=== PATIENT | male | born 1945 | race Caucasian/White ===

== ENCOUNTER 2018-07-28 15:50 | Observation (INO) ==
[2018-07-28 16:52] LABS: Mean Corpuscular Hemoglobin 32.9 pg (27.0-34.0); Mean Platelet Volume 9.8 fL (7.0-11.0); Platelet Count 139 th/mm3 (150-450); Red Blood Count 3.96 mil/mm3 (4.50-5.90); Red Cell Distribution Width 14.7 % (11.6-17.2); White Blood Count 6.9 th/mm3 (4.0-11.0)
--- NOTE | 2018-07-28 16:57 | CT ---
EXAM DATE: 07/28/2018 4:51 PM EDT AGE/SEX: 72 years / Male INDICATIONS: Syncope. CLINICAL DATA: This is the patient's initial encounter. Patient reports that signs and symptoms have been present for 1 day and indicates a pain score of 0/10. MEDICAL/SURGICAL HISTORY: Diabetes. Hypertension. Gout. None. RADIATION DOSE: 38.83 CTDI (mGy) COMPARISON: No prior exams available for comparison. TECHNIQUE: CT of the head without contrast. Using automated exposure control and adjustment of the mA and/or kV according to patient size, radiation dose was kept as low as reasonably achievable to ob tain optimal diagnostic quality images. DICOM format image data is available electronically for revi ew and comparison. FINDINGS: Cerebrum: The ventricles are normal for age. No evidence of midline shift, mass lesion, acute hemor rhage, or acute large vessel cortically-based infarction. No extraaxial fluid collections are seen. Posterior Fossa: The cerebellum and brainstem are intact. The 4th ventricle is midline. The cerebe llopontine angle is unremarkable. Extracranial: The visualized portion of the orbits is intact. Skull: The calvaria is intact. No evidence of skull fracture. CONCLUSION: 1. No acute intracranial findings. . Electronically signed by: Stephy Gleason MD 07/28/2018 4:56 PM EDT
[2018-07-28 17:00] LABS: Mean Corpuscular HGB Conc 36.1 % (32.0-36.0)
[2018-07-28 17:18] LABS: Alanine Aminotransferase 29 U/L (12-78); Albumin 3.1 g/dL (3.4-5.0); Alkaline Phosphatase 79 U/L (45-117); Anion Gap 11 meq/L (5-15); Aspartate Aminotransferase 21 U/L (15-37); Blood Urea Nitrogen 17 mg/dL (7-18); Calcium 8.2 mg/dL (8.5-10.1); Carbon Dioxide 23.5 meq/L (21.0-32.0); Chloride 102 meq/L (98-107); Glomerular Filtration Rate 67 mL/min (>89); Glucose,Random 226 mg/dL (74-106); Magnesium 1.5 mg/dL (1.5-2.5); Potassium 3.4 meq/L (3.5-5.1); Sodium 136 meq/L (136-145); Total Protein 6.5 g/dL (6.4-8.2)
[2018-07-28] MEDS ORDERED: Magnesium Oxide 400 MG Tablet PO ONE (17:32)
--- NOTE | 2018-07-28 17:47 | ED ---
HPI General Chief Complaint: Syncope Stated Complaint: Evac/Syncope Time Seen by Provider: 07/28/18 16:22 Source: patient and EMS Mode of arrival: EMS Limitations: no limitations History of Present Illness HPI narrative: Patient is a 72-year-old male presenting to the emergency department for evaluation of the syncopal episode. Patient was at home when he started feeling lightheaded and weak in the shower. He got out of the shower, sat on the toilet bowl and passed out against the wall. There is no head injury. states he was not responding for several seconds but aroused spontaneously, states that he was not talking when he first aroused.. Patient states he has been feeling tired and weak for several days. reports that he had a fever over the weekend and was evaluated in the emergency department yesterday. Patient states that he has had a decreased appetite and has not been drinking enough fluids. Patient denies any shortness of breath, headache, abdominal pain, nausea, vomiting. He was supposed to have a colonoscopy with Dr. Browne Thursday but it was canceled because he was sick over the weekend. Patient reports that he had chronic diarrhea, he has not had a bowel movement in a few days. MD complaint: loss of consciousness and felt faint Duration of episode: 5 -: minutes(s) Prodromal symptoms: lightheaded and vertigo Witnessed: yes - by other ( found him passed out against the wall sitting on toilet. No prolonged down time) Context: during exertion Injuries sustained associated with event: none Current symptoms: none Related Data Home Medications Medication Instructions Recorded Confirmed allopurinol 300 mg PO DAILY 07/27/18 07/28/18 aspirin [Aspir-81] 81 mg PO DAILY 07/27/18 07/28/18 atorvastatin 80 mg PO DAILY 07/27/18 07/28/18 carvedilol 25 mg PO BID 07/27/18 07/28/18 glipizide 10 mg PO BID 07/27/18 07/28/18 metformin 1,000 mg PO BID 07/27/18 07/28/18 omeprazole 20 mg PO DAILY 07/27/18 07/28/18 ramipril 10 mg PO BID 07/27/18 07/28/18 sulfasalazine 500 mg PO QID 07/27/18 07/28/18 metformin 500 mg PO QPM 07/28/18 07/28/18 Previous Rx's Medication Instructions Recorded tramadol 50 mg PO Q6H PRN #12 tab 07/27/18 Allergies Allergy/AdvReac Type Severity Reaction Status Date / Time No Known Allergies Allergy Unverified 07/28/18 16:06 Review of Systems ROS: all other systems reviewed are negative [facility] Medical History Medical History Diabetes (Chronic) Gout (Chronic) Hypertension (Chronic) CAD (coronary artery disease) (Chronic) Chronic diarrhea (Chronic) Hyperlipidemia (Chronic) Surgical History Surgical History Hx of cardiac cath (Chronic) Social History Social History Substance History: No History of Abuse Smoking Status: Never smoker How Often Do You Have a Drink Containing Alcohol: Never Recent Travel in [facility] within the Last 8 Weeks: No Recent Out of Country Travel within the Last 8 Weeks: No Immunization History Tetanus Immunization: Unsure Hx Influenza Vaccine This Season: No Exam Narrative Exam Narrative: GENERAL: Well-developed, well-nourished, alert male. Presenting in no acute distress. SKIN: Focused skin assessment warm/dry. HEAD: Atraumatic. Normocephalic. EYES: Pupils equal and round. No scleral icterus. No injection or drainage. ENT: No nasal bleeding or discharge. Mucous membranes pink and moist. NECK: Trachea midline. No JVD. CARDIOVASCULAR: Regular rate and rhythm. No murmur appreciated. RESPIRATORY: No accessory muscle use. Clear to auscultation. Breath sounds equal bilaterally. GASTROINTESTINAL: Abdomen soft, non-tender, nondistended. Hepatic and splenic margins not palpable. MUSCULOSKELETAL: No obvious deformities. No clubbing. No cyanosis. No edema. NEUROLOGICAL: Awake and alert. No obvious cranial nerve deficits. Motor grossly within normal limits. Normal speech. PSYCHIATRIC: Appropriate mood and affect; insight and judgment normal. Course Initial Documented Vital Signs Temperature 98.6 F 07/28/18 16:08 Pulse Rate 74 07/28/18 16:08 Respiratory Rate 17 07/28/18 16:08 Blood Pressure 146/73 H 07/28/18 16:08 Pulse Oximetry 97 07/28/18 16:08 Last Documented Vital Signs Temperature 98.6 F 07/28/18 16:08 Pulse Rate 78 07/28/18 19:24 Respiratory Rate 18 07/28/18 19:24 Blood Pressure 142/73 H 07/28/18 19:24 Pulse Oximetry 97 07/28/18 19:24 Medical Decision Making MDM Narrative Medical decision making narrative: Patient is a 72-year-old male presenting to emerge department for evaluation after having a syncopal episode that was partially witnessed by his . On arrival patient has no focal deficits. He is alert and oriented x3. Labs and imaging ordered and pending. Initial EKG shows sinus rhythm with a right bundle branch block, this was reviewed by my attending physician. CT scan of the brain shows no acute findings. Potassium is 3.4, magnesium is 1.5. Oral replacement ordered for both. CBC resulted with a bandemia. No clear source of infection. Urinalysis is unremarkable, CT scan of the abdomen and pelvis shows no acute findings. Patient is negative for influenza. Lactic acid is pending. Will hold antibiotics at this time, patient is afebrile, his vital signs are stable. Discussed with my attending physician as well as Dr. Newman who accepted admit , admit orders placed. Patient advised in all clinical findings. Patient is resting comfortably, he is well-appearing. He is agreeable to stay. Medical Screen Exam Complete: Yes Emergency Medical Condition: Yes Differential Diagnosis Differential Diagnosis: Vasovagal episode versus metabolic abnormality versus cardiac arrhythmia versus other Medical Records Medical records reviewed: Yes I reviewed the patient's medical records. Chest x-ray from yesterday shows no acute disease. Lab Data Lab results reviewed: Yes I reviewed the patient's lab results. Result diagrams: 07/28/18 16:30 07/28/18 16:30 Lab Results 07/28/18 07/28/18 07/28/18 Range/Units 16:30 16:30 16:38 WBC 6.9 (4.0-11.0) th/mm3 RBC 3.96 L (4.50-5.90) mil/mm3 Hgb 13.0 (13.0-17.0) gm/dL Hct 36.0 L (39.0-51.0) % MCV 91.0 (80.0-100.0) fL MCH 32.9 (27.0-34.0) pg MCHC 36.1 H (32.0-36.0) % RDW 14.7 (11.6-17.2) % Plt Count 139 L (150-450) th/mm3 MPV 9.8 (7.0-11.0) fL Prelim Diff (Auto) Manual diff required WBC Differential Manual diff final Seg Neuts % (Manual) 60 (16-70) % Band Neuts % (Manual) 10 H (0-6) % Lymphocytes % (Manual) 11 (9-44) % Monocytes % (Manual) 10 H (0-8) % Eosinophils % (Manual) 7 H (0-4) % Blast Cells % (Manual) 2 H (0-0) % Abs Neuts (Manual) 4.8 (1.8-7.7) th/mm3 Differential Comment . Platelet Estimate Low L (Normal) Platelet Morphology Normal (Normal) Sodium 136 (136-145) meq/L Potassium 3.4 L D (3.5-5.1) meq/L Chloride 102 (98-107) meq/L Carbon Dioxide 23.5 (21.0-32.0) meq/L Anion Gap 11 (5-15) meq/L BUN 17 (7-18) mg/dL Creatinine 1.08 (0.60-1.30) mg/dL Estimated GFR 67 L (>89) mL/min POC Glucose 241 H (68-110) mg/dl Random Glucose 226 H D (74-106) mg/dL Calcium 8.2 L (8.5-10.1) mg/dL Magnesium 1.5 (1.5-2.5) mg/dL Total Bilirubin 1.3 H (0.2-1.0) mg/dL AST 21 (15-37) U/L ALT 29 (12-78) U/L Alkaline Phosphatase 79 (45-117) U/L Troponin I Less than 0.02 L (0.02-0.05) ng/mL Total Protein 6.5 D (6.4-8.2) g/dL Albumin 3.1 L (3.4-5.0) g/dL Urine Color (Yellw/Straw) Urine Clarity (Clear) Urine pH (5.0-8.5) Ur Specific [place] (1.002-1.035) Urine Protein (Neg-Trace) mg/dL Urine Glucose (UA) (Negative) mg/dL Urine Ketones (Negative) mg/dL Urine Occult Blood (Negative) Urine Nitrate (Negative) Urine Bilirubin (Negative) Urine Urobilinogen (Less than 2) mg/dL Ur Leukocyte Esterase (Negative) Urine RBC (0-3) /hpf Urine WBC (0-5) /hpf Hyaline Casts (0-3) /lpf Urine Mucus (Occasional) /lpf Micro UA Comment Ur Microscopic Review Urine Culture Comments 07/28/18 Range/Units 18:50 WBC (4.0-11.0) th/mm3 RBC (4.50-5.90) mil/mm3 Hgb (13.0-17.0) gm/dL Hct (39.0-51.0) % MCV (80.0-100.0) fL MCH (27.0-34.0) pg MCHC (32.0-36.0) % RDW (11.6-17.2) % Plt Count (150-450) th/mm3 MPV (7.0-11.0) fL Prelim Diff (Auto) WBC Differential Seg Neuts % (Manual) (16-70) % Band Neuts % (Manual) (0-6) % Lymphocytes % (Manual) (9-44) % Monocytes % (Manual) (0-8) % Eosinophils % (Manual) (0-4) % Blast Cells % (Manual) (0-0) % Abs Neuts (Manual) (1.8-7.7) th/mm3 Differential Comment Platelet Estimate (Normal) Platelet Morphology (Normal) Sodium (136-145) meq/L Potassium (3.5-5.1) meq/L Chloride (98-107) meq/L Carbon Dioxide (21.0-32.0) meq/L Anion Gap (5-15) meq/L BUN (7-18) mg/dL Creatinine (0.60-1.30) mg/dL Estimated GFR (>89) mL/min POC Glucose (68-110) mg/dl Random Glucose (74-106) mg/dL Calcium (8.5-10.1) mg/dL Magnesium (1.5-2.5) mg/dL Total Bilirubin (0.2-1.0) mg/dL AST (15-37) U/L ALT (12-78) U/L Alkaline Phosphatase (45-117) U/L Troponin I (0.02-0.05) ng/mL Total Protein (6.4-8.2) g/dL Albumin (3.4-5.0) g/dL Urine Color [place] (Yellw/Straw) Urine Clarity Hazy H (Clear) Urine pH 5.0 (5.0-8.5) Ur Specific [place] 1.027 (1.002-1.035) Urine Protein 30 H (Neg-Trace) mg/dL Urine Glucose (UA) 500 or greater (Negative) mg/dL Urine Ketones Negative (Negative) mg/dL Urine Occult Blood Small H (Negative) Urine Nitrate Negative (Negative) Urine Bilirubin Negative (Negative) Urine Urobilinogen 2.0 H (Less than 2) mg/dL Ur Leukocyte Esterase Negative (Negative) Urine RBC Less than 1 (0-3) /hpf Urine WBC 1 (0-5) /hpf Hyaline Casts 5 (0-3) /lpf Urine Mucus Few H (Occasional) /lpf Micro UA Comment Culture not ind Ur Microscopic Review Not Reportable Urine Culture Comments Culture not ind Imaging Data Radiologist's impression: Head CT 07/28/18 16:24 CONCLUSION: 1. No acute intracranial findings. . Abdomen/Pelvis CT 07/28/18 18:19 CONCLUSION: 1. No acute inflammatory process. 2. Subcentimeter left renal low-density likely benign cysts. 3. Enlarged prostate gland. Discharge Plan Discharge Disposition Patient Disposition: 30 Still Patient Discharge Condition Condition: Stable Discharge Details Diagnosis: Bandemia without diagnosis of specific infection, Syncope and collapse Physicians Team ED Provider: Lizz Danielle ED Midlevel Provider: Rula Yen Primary Care Provider: Margarita Ram Rxs /Orders / Referrals /Forms Prescriptions: No Action metformin 500 mg Tablet 500 mg PO QPM RF: 0 atorvastatin 80 mg Tablet 80 mg PO DAILY RF: 0 carvedilol 25 mg Tablet 25 mg PO BID RF: 0 glipizide 10 mg Tablet 10 mg PO BID RF: 0 sulfasalazine 500 mg Tablet,Delayed Release (Dr/Ec) 500 mg PO QID RF: 0 metformin 1,000 mg Tablet 1,000 mg PO BID RF: 0 omeprazole 20 mg Capsule,Delayed Release(Dr/Ec) 20 mg PO DAILY RF: 0 allopurinol 300 mg Tablet 300 mg PO DAILY RF: 0 ramipril 10 mg Capsule 10 mg PO BID RF: 0 aspirin [Aspir-81] 81 mg Tablet,Delayed Release (Dr/Ec) 81 mg PO DAILY RF: 0 tramadol 50 mg tablet 50 mg PO Q6H PRN (Reason: pain) Qty: 12 RF: 0 Discharge Interventions Interventions: Vital Signs Last Done: 07/28/18 19:24 Status ED Status: Pending Admission
[2018-07-28 18:14] LABS: Eosinophils 7 % (0-4); Monocytes 10 % (0-8)
[2018-07-28 18:17] LABS: Platelet Morphology Normal (Normal)
--- NOTE | 2018-07-28 19:04 | CT ---
EXAM DATE: 07/28/2018 6:58 PM EDT AGE/SEX: 72 years / Male INDICATIONS: Abdomen pain. CLINICAL DATA: This is the patient's initial encounter. Patient reports that signs and symptoms have been present for 1 day and indicates a pain score of 5/10. MEDICAL/SURGICAL HISTORY: Diabetes. Cardiovascular disease. Hypertension. None. ORAL CONTRAST: No oral contrast ingested. RADIATION DOSE: 9.49 CTDI (mGy) COMPARISON: No prior exams available for comparison. TECHNIQUE: Multiple contiguous axial images were obtained through the abdomen and pelvis following b olus infusion of 75 ml Omnipaque 350 (iohexol) nonionic water-soluble contrast as a single exam dos e. No oral contrast ingested. Using automated exposure control and adjustment of the mA and/or kV ac cording to patient size, radiation dose was kept as low as reasonably achievable to obtain optimal di agnostic quality images. DICOM format image data is available electronically for review and comparis on. FINDINGS: Lower Lungs: The visualized lower lungs are clear. Liver: The liver has a homogeneous density without space-occupying lesion. There is no dilation of th e biliary tree. Spleen: Homogeneous density without enlargement. Pancreas: Unremarkable without mass or calcification. Kidneys: Normal in size and shape. No evidence of mass or hydronephrosis. Subcentimeter left renal l ow-density. Adrenal Glands: Unremarkable. Aorta: Atherosclerotic changes without aneurysmal dilation. Bowel/Mesentery: The bowel loops are grossly unremarkable. The cecum and sigmoid colon have a normal configuration. Abdominal Wall: Intact. Retroperitoneum: No evidence of adenopathy in the retrocrural, para-aortic, or deep pelvic regions. Bladder: Contours are smooth. Reproductive Organs: No abnormal masses or calcifications seen. Enlarged prostate gland. Inguinal: The inguinal region is unremarkable without evidence of adenopathy. Bony Structures: Unremarkable. CONCLUSION: 1. No acute inflammatory process. 2. Subcentimeter left renal low-density likely benign cysts. 3. Enlarged prostate gland. Electronically signed by: Chris Alba MD 07/28/2018 7:02 PM EDT
[2018-07-28 19:43] LABS: Bilirubin,Urine Negative (Negative); Clarity,Urine Hazy (Clear); Color,Urine Amber (Yellw/Straw); Glucose,Urine (UA) 500 or Greater mg/dL (Negative); Hyaline Casts,Urine 5 /lpf (0-3); Leukocyte Esterase,Urine Negative (Negative); Mucus,Urine Few /lpf (Occasional); Nitrite,Urine Negative (Negative); Specific Gravity,Urine 1.027 (1.002-1.035)
[2018-07-28] MEDS ORDERED: Vancomycin Inj 1,000 MG in Sodium Chlor 0.9% Inj 250 ML IV.SIG STA (21:23)
[2018-07-28] MEDS ORDERED: Piperacil/Tazo 4.5 GM Premix 4.5 GM/100 ML BAG IV.SIG STA (21:23)
[2018-07-28] MEDS: Sod Chloride 0.9% Inj 1,000 ML IV.SIG SCH ×2 (21:27→23:30)
--- NOTE | 2018-07-28 22:03 | XR ---
EXAM DATE: 07/28/2018 10:00 PM EDT AGE/SEX: 72 years / Male INDICATIONS: Sepsis, syncope, bandemia. Patient states " I have passed out 2 days in a row. I believ e I am just dehydrated." CLINICAL DATA: This is the patient's initial encounter. Patient reports that signs and symptoms have been present for 2 days and indicates a pain score of 0/10. MEDICAL/SURGICAL HISTORY: None. None. COMPARISON: [facility] [place], CHEST 1V SINGLE AP, 07/27/2018. . FINDINGS: A single AP view of the chest demonstrates the lungs to be symmetrically aerated without evidence of mass, infiltrate or effusion. The cardiomediastinal contours are unremarkable. Osseous structures a re intact. CONCLUSION: No acute cardiopulmonary disease Electronically signed by: Chris Alba MD 07/28/2018 10:02 PM EDT
[2018-07-28] MEDS ORDERED: Vancomycin Consult Pharmacy OTHER PRN (22:06)
[2018-07-28] MEDS ORDERED: Dextrose 50% in Water 50 ML Vial IV.PUSH PRN (22:08)
--- NOTE | 2018-07-28 22:20 | P.HP ---
History of Present Illness Service: [facility] Primary Care Physician: Margarita Ram MD History of Present Illness: 72-year-old male with past medical history significant for hypertension, diabetes mellitus, hyperlipidemia and coronary artery disease presents to the emergency department for the evaluation of a syncopal episode. The patient reports that he started feeling dizzy on Thursday. He reports that he was not feeling well through the weekend and on Thursday had a fever of 102. The patient came to the emergency department yesterday was given IV fluid hydration and reports resolution of his symptoms. He was discharged home. He reports that he woke up this morning feeling weak. He had a syncopal event after getting out of the shower. He is not sure if he lost consciousness. He denies any head trauma or injuries of other kind. He denies chest pain or shortness of breath. No abdominal pain. No nausea/vomiting/diarrhea. No lateralizing signs /symptoms Review of Systems All other systems reviewed negative except as stated in [facility] - History History Provided By: Patient - Medical History Medical History: Medical History (Last Updated 07/28/18 @ 22:12 by Gisell Newman MD) Diabetes (Chronic) Gout (Chronic) Hypertension (Chronic) Hyperlipidemia CAD (coronary artery disease) Chronic diarrhea Hyperlipidemia - Surgical History Surgical History: Surgical History (Last Updated 07/28/18 @ 22:13 by Gisell Newman MD) Hx of cardiac cath (Chronic) History of knee surgery - Family History Family History: Family History (Last Updated 07/28/18 @ 22:13 by Gisell Newman MD) Other Coronary artery disease Diabetes mellitus - Tobacco History Smoking Status: Never smoker - Alcohol History How Often Do You Have a Drink Containing Alcohol: Never - Substance Use History Substance History: No History of Abuse - Travel History Recent Travel in the [place] Within the Last 8 Weeks: No Recent Travel Out of the Country Within the Last 8 Weeks: No - Immunization History Tetanus Immunization: Unsure Hx Influenza Vaccine This Season: No Medications and Allergies Active Medications: Active Medications Aspirin (Ecotrin) 81 mg PO DAILY LEONCIO Atorvastatin Calcium (Lipitor) 80 mg PO DAILY LEONCIO Dextrose (D50w Vial) 50 ml IV.PUSH UNSCH PRN PRN Reason: PER HYPOGLYCEMIA PROTOCOL Sodium Chloride (Ns Inj) 1,000 mls @ 0 mls/hr IV.SIG BOLUS LEONCIO Last Admin: 07/28/18 21:27 Dose: 1,000 mls/hr Vancomycin HCl 1,000 mg/ (Sodium Chloride) 250 mls @ 250 mls/hr IV.SIG STAT STA Stop: 07/28/18 22:22 Allergies Allergy/AdvReac Type Severity Reaction Status Date / Time No Known Allergies Allergy Unverified 07/28/18 16:06 Home Medications Medication Instructions Recorded Confirmed Type allopurinol 300 mg PO DAILY 07/27/18 07/28/18 History aspirin [Aspir-81] 81 mg PO DAILY 07/27/18 07/28/18 History atorvastatin 80 mg PO DAILY 07/27/18 07/28/18 History carvedilol 25 mg PO BID 07/27/18 07/28/18 History glipizide 10 mg PO BID 07/27/18 07/28/18 History metformin 1,000 mg PO BID 07/27/18 07/28/18 History omeprazole 20 mg PO DAILY 07/27/18 07/28/18 History ramipril 10 mg PO BID 07/27/18 07/28/18 History sulfasalazine 500 mg PO QID 07/27/18 07/28/18 History metformin 500 mg PO QPM 07/28/18 07/28/18 History Exam Vital signs: Vital Signs 07/28/18 16:08 07/28/18 16:14 07/28/18 16:45 Temperature 98.6 F Pulse Rate 74 75 Respiratory Rate 17 Blood Pressure 146/73 H Pulse Oximetry 97 97 07/28/18 19:24 Temperature Pulse Rate 78 Respiratory Rate 18 Blood Pressure 142/73 H Pulse Oximetry 97 Intake & Output 07/28/18 07/28/18 07/29/18 06:59 18:59 06:59 Weight 87.543 kg Narrative: Gen.: No acute distress Head: Normocephalic. Atraumatic. EENT: Pupils equal round and reactive to light. Nose without drainage. Airway intact. Throat without injection. Cardiovascular: Regular rate and rhythm. No murmurs, rubs or gallops. Respiratory: Lungs clear to auscultation bilaterally. No wheezes or rhonchi. Abdomen: Soft, nontender, nondistended. No peritoneal signs. Musculoskeletal: No gross deformities. No edema. Skin: No obvious rashes or erythema. Neuro: Sensory and motor grossly intact. Cranial nerves II through XII grossly intact. Results - Labs CBC & Chem 7: 07/28/18 16:30 07/28/18 16:30 Labs: Laboratory Results - last 24 hr 07/28/18 07/28/18 07/28/18 16:30 16:30 16:38 WBC 6.9 RBC 3.96 L Hgb 13.0 Hct 36.0 L MCV 91.0 MCH 32.9 MCHC 36.1 H RDW 14.7 Plt Count 139 L MPV 9.8 Prelim Diff (Auto) Manual diff required WBC Differential Manual diff final Seg Neuts % (Manual) 60 Band Neuts % (Manual) 10 H Lymphocytes % (Manual) 11 Monocytes % (Manual) 10 H Eosinophils % (Manual) 7 H Blast Cells % (Manual) 2 H Abs Neuts (Manual) 4.8 Differential Comment . Platelet Estimate Low L Platelet Morphology Normal Sodium 136 Potassium 3.4 L D Chloride 102 Carbon Dioxide 23.5 Anion Gap 11 BUN 17 Creatinine 1.08 Estimated GFR 67 L POC Glucose 241 H Random Glucose 226 H D Lactic Acid Calcium 8.2 L Magnesium 1.5 Total Bilirubin 1.3 H AST 21 ALT 29 Alkaline Phosphatase 79 Troponin I Less than 0.02 L Total Protein 6.5 D Albumin 3.1 L Urine Color Urine Clarity Urine pH Ur Specific [place] Urine Protein Urine Glucose (UA) Urine Ketones Urine Occult Blood Urine Nitrate Urine Bilirubin Urine Urobilinogen Ur Leukocyte Esterase Urine RBC Urine WBC Hyaline Casts Urine Mucus Micro UA Comment Ur Microscopic Review Urine Culture Comments 07/28/18 07/28/18 18:50 20:05 WBC RBC Hgb Hct MCV MCH MCHC RDW Plt Count MPV Prelim Diff (Auto) WBC Differential Seg Neuts % (Manual) Band Neuts % (Manual) Lymphocytes % (Manual) Monocytes % (Manual) Eosinophils % (Manual) Blast Cells % (Manual) Abs Neuts (Manual) Differential Comment Platelet Estimate Platelet Morphology Sodium Potassium Chloride Carbon Dioxide Anion Gap BUN Creatinine Estimated GFR POC Glucose Random Glucose Lactic Acid 2.8 H Calcium Magnesium Total Bilirubin AST ALT Alkaline Phosphatase Troponin I Total Protein Albumin Urine Color [place] Urine Clarity Hazy H Urine pH 5.0 Ur Specific [place] 1.027 Urine Protein 30 H Urine Glucose (UA) 500 or greater Urine Ketones Negative Urine Occult Blood Small H Urine Nitrate Negative Urine Bilirubin Negative Urine Urobilinogen 2.0 H Ur Leukocyte Esterase Negative Urine RBC Less than 1 Urine WBC 1 Hyaline Casts 5 Urine Mucus Few H Micro UA Comment Culture not ind Ur Microscopic Review Not Reportable Urine Culture Comments Culture not ind - Imaging Impressions Head CT 07/28/18 16:24 CONCLUSION: 1. No acute intracranial findings. . Abdomen/Pelvis CT 07/28/18 18:19 CONCLUSION: 1. No acute inflammatory process. 2. Subcentimeter left renal low-density likely benign cysts. 3. Enlarged prostate gland. Chest X-Ray 07/28/18 21:38 CONCLUSION: No acute cardiopulmonary disease Caprini VTE Risk Assessment Caprini VTE Risk Assessment: Moderate/High Risk (score >= 2) Caprini Risk Assessment Model: Point Value = 1 Point Value = 2 Point Value = 3 Point Value = 5 Age 41-60 Minor surgery BMI > 25 kg/m2 Swollen legs Varicose veins or History of unexplained or recurrent spontaneous Oral contraceptives or hormone replacement Sepsis (< 1 month) Serious lung disease, including pneumonia (< 1 month) Abnormal pulmonary function Acute myocardial infarction Congestive heart failure (< 1 month) History of inflammatory bowel disease Medical patient at bed rest Age 61-74 Arthroscopic surgery Major open surgery (> 45 min) Laparoscopic surgery (> 45 min) Malignancy Confined to bed (> 72 hours) Immobilizing plaster cast Central venous access Age >= 75 History of VTE Family history of VTE Factor V Leiden Prothrombin [id number] Lupus anticoagulant Anticardiolipin antibodies Elevated serum homocysteine Heparin-induced thrombocytopenia Other congenital or acquired thrombophilia Stroke (< 1 month) Elective arthroplasty Hip, pelvis, or leg fracture Acute spinal cord injury (< 1 month) Prophylaxis Regimen: Total Risk Factor Score Risk Level Prophylaxis Regimen 0-1 Low Early ambulation 2 Moderate Order ONE of the following: *Sequential Compression Device (SCD) *Heparin 5000 units SQ BID 3-4 Higher Order ONE of the following medications: *Heparin 5000 units SQ TID *Enoxaparin/Lovenox 40 mg SQ daily (WT < 150 kg, CrCl > 30 mL/min) *Enoxaparin/Lovenox 30 mg SQ daily (WT < 150 kg, CrCl > 10-29 mL/min) *Enoxaparin/Lovenox 30 mg SQ BID (WT < 150 kg, CrCl > 30 mL/min) AND/OR *Sequential Compression Device (SCD) 5 or more Highest Order ONE of the following medications: *Heparin 5000 units SQ TID (Preferred with Epidurals) *Enoxaparin/Lovenox 40 mg SQ daily (WT < 150 kg, CrCl > 30 mL/min) *Enoxaparin/Lovenox 30 mg SQ daily (WT < 150 kg, CrCl > 10-29 mL/min) *Enoxaparin/Lovenox 30 mg SQ BID (WT < 150 kg, CrCl > 30 mL/min) AND *Sequential Compression Device (SCD) Assessment and Plan - Plan Assessment/plan: 1. Syncope Carotid ultrasound/echo pending May be secondary to underlying illness versus dehydration 2. Elevated lactic acid/bandemia Urine negative Chest x-ray negative for acute process, personally reviewed Patient with bandemia and elevated lactic acid Vancomycin/Zosyn Blood cultures pending 3. Diabetes mellitus Holding home oral anti-hyperglycemics Sliding-scale insulin Monitor blood glucose 4. Hypertension/hyperlipidemia/coronary artery disease Continue home medications FEN Diabetic diet Electrolytes: Status post repletion with p.o. potassium, monitor BMP NS at 100 cc/hour Heparin
[2018-07-28] MEDS ORDERED: Vancomycin Inj 1,000 MG in Sodium Chlor 0.9% Inj 250 ML IV.SIG ONE (23:00)
[2018-07-28] MEDS: Sod Chloride 0.9% Inj 1,000 ML IV.CONT SCH (23:32)
[2018-07-29] MEDS: Insulin NovoLOG Aspart Correctional Sugar Inj SQ SCH ×5 (03:59→20:56)
[2018-07-29] MEDS ORDERED: Piperacil/Tazo 3.375 GM Premix 50 ML IV.SIG SCH (04:00)
[2018-07-29] MEDS: Heparin - SQ 10,000 UNITS/ML Vial SQ SCH ×3 (06:26→20:57)
[2018-07-29 07:36] LABS: Calcium 8.5 mg/dL (8.5-10.1); Carbon Dioxide 23.8 meq/L (21.0-32.0); Potassium 4.4 meq/L (3.5-5.1)
[2018-07-29 07:40] LABS: Hematocrit 32.2 % (39.0-51.0); Hemoglobin 11.7 gm/dL (13.0-17.0); Mean Corpuscular Volume 90.6 fL (80.0-100.0); Mean Platelet Volume 9.3 fL (7.0-11.0); Platelet Count 118 th/mm3 (150-450); Red Blood Count 3.56 mil/mm3 (4.50-5.90); Red Cell Distribution Width 14.7 % (11.6-17.2); White Blood Count 5.4 th/mm3 (4.0-11.0)
[2018-07-29 07:55] LABS: Mean Corpuscular HGB Conc 36.4 % (32.0-36.0)
[2018-07-29 09:00] LABS: Eosinophils 5 % (0-4); Lymphocytes 28 % (9-44); Monocytes 12 % (0-8); Platelet Morphology Normal (Normal)
--- NOTE | 2018-07-29 09:29 | US ---
EXAM DATE: 07/29/2018 9:23 AM EDT AGE/SEX: 72 years / Male INDICATIONS: Syncope. CLINICAL DATA: This is the patient's initial encounter. Patient reports that signs and symptoms have been present for 1 day and indicates a pain score of 0/10. MEDICAL/SURGICAL HISTORY: Hypertension. Coronary artery disease. Diabetes. GOUT. Hyperlipidemia . . Knee surgery. Cardiac catheterization. COMPARISON: No prior exams available for comparison. VELOCITY PARAMETERS: ICA/CCA Ratio: Right 1.4 , Left 1.2 ICA: Right 124 cm/sec, Left 118 cm/sec CCA: Right 90 cm/sec, Left 96 cm/sec ECA: Right 115 cm/sec, Left 79 cm/sec Vertebral: Right 58 cm/sec antegrade, Left 79 cm/sec antegrade FINDINGS: Right Carotid: Mild arteriosclerotic plaque is visualized.The waveforms are within normal limits. Left Carotid: Mild arteriosclerotic plaque is visualized. The waveforms are within normal limits. Other: None. CONCLUSION: 1. Right Internal Carotid Artery: No hemodynamically significant stenosis. 2. Left Internal Carotid Artery: No hemodynamically significant stenosis. Electronically signed by: Elias Cheney MD 07/29/2018 9:28 AM EDT
--- NOTE | 2018-07-29 09:39 | P.PNIM ---
Subjective Interval history: Patient reports he is feeling much better today. He denies lightheadedness. No chest pain. Physical Exam Vital signs: Vital Signs 07/28/18 16:08 07/28/18 16:14 07/28/18 16:45 Temperature 98.6 F Pulse Rate 74 75 Respiratory Rate 17 Blood Pressure 146/73 H Pulse Oximetry 97 97 07/28/18 19:24 07/28/18 23:56 07/29/18 00:00 Temperature 98.2 F Pulse Rate 78 76 80 Respiratory Rate 18 20 Blood Pressure 142/73 H 149/71 H Pulse Oximetry 97 100 07/29/18 03:30 07/29/18 04:00 07/29/18 07:37 Temperature 98.4 F 98.0 F Pulse Rate 97 H 76 72 Respiratory Rate 19 12 Blood Pressure 145/71 H 148/71 H Pulse Oximetry 97 96 Intake & Output 07/28/18 07/29/18 07/29/18 18:59 06:59 18:59 Intake Total 1650 / 1650 Balance 1650 / 1650 Weight 87.543 kg Intake: IV 1650 / 1650 Zosyn 3.375 GM Premix 50 ML @ 50 / 50 100 mls/hr IV.SIG Q6H LEONCIO Rx#: [id number] Zosyn 4.5 GM Premix 4.5 gm In 100 / 100 100 ml @ 200 mls/hr IV.SIG STAT STA Rx#:[id number] NS Inj 1,000 ML @ Wide Open IV. 1000 / 1000 SIG BOLUS LEONCIO Rx#:[id number] Vancomycin Inj 1,000 MG In NS 500 / 500 Inj 250 ML @ 250 mls/hr IV.SIG ONCE ONE Rx#:[id number] Other: # Voids 2 Date of Last Bowel Movement 07/24/18 Narrative: GENERAL: This is a well-nourished, well-developed patient, in no apparent distress. CARDIOVASCULAR: Normal rate and regular rhythm without murmurs, gallops, or rubs. RESPIRATORY: Good respiratory efforts. Breath sounds equal and clear to auscultation bilaterally. GASTROINTESTINAL: Abdomen soft, non-tender, non-distended. Normal active bowel sounds MUSCULOSKELETAL: Extremities without cyanosis, or edema. NEURO: Alert & Oriented x4 to person, place, time, situation. Moves all ext x4 PSYCH: Appropriate mood and affect. Results - Labs CBC & Chem 7: 09/20/18 06:05 07/29/18 06:05 Laboratory Results - last 24 hr 07/28/18 07/28/18 07/28/18 16:30 16:30 16:30 WBC 6.9 RBC 3.96 L Hgb 13.0 Hct 36.0 L MCV 91.0 MCH 32.9 MCHC 36.1 H RDW 14.7 Plt Count 139 L MPV 9.8 Prelim Diff (Auto) Stem Processing Machine Operator WBC Differential Manual diff final . Seg Neuts % (Manual) 60 Band Neuts % (Manual) 10 H Lymphocytes % (Manual) 11 Monocytes % (Manual) 10 H Eosinophils % (Manual) 7 H Blast Cells % (Manual) 2 H Abs Neuts (Manual) 4.8 Differential Comment . Platelet Estimate Low L Platelet Morphology Normal Sodium 136 Potassium 3.4 L D Chloride 102 Carbon Dioxide 23.5 Anion Gap 11 BUN 17 Creatinine 1.08 Estimated GFR 67 L POC Glucose Random Glucose 226 H D Lactic Acid Calcium 8.2 L Magnesium 1.5 Total Bilirubin 1.3 H AST 21 ALT 29 Alkaline Phosphatase 79 Troponin I Less than 0.02 L Total Protein 6.5 D Albumin 3.1 L Urine Color Urine Clarity Urine pH Ur Specific [place] Urine Protein Urine Glucose (UA) Urine Ketones Urine Occult Blood Urine Nitrate Urine Bilirubin Urine Urobilinogen Ur Leukocyte Esterase Urine RBC Urine WBC Hyaline Casts Urine Mucus Micro UA Comment Ur Microscopic Review Urine Culture Comments 07/28/18 07/28/18 07/28/18 16:38 18:50 20:05 WBC RBC Hgb Hct MCV MCH MCHC RDW Plt Count MPV Prelim Diff (Auto) WBC Differential Seg Neuts % (Manual) Band Neuts % (Manual) Lymphocytes % (Manual) Monocytes % (Manual) Eosinophils % (Manual) Blast Cells % (Manual) Abs Neuts (Manual) Differential Comment Platelet Estimate Platelet Morphology Sodium Potassium Chloride Carbon Dioxide Anion Gap BUN Creatinine Estimated GFR POC Glucose 241 H Random Glucose Lactic Acid 2.8 H Calcium Magnesium Total Bilirubin AST ALT Alkaline Phosphatase Troponin I Total Protein Albumin Urine Color [place] Urine Clarity Hazy H Urine pH 5.0 Ur Specific [place] 1.027 Urine Protein 30 H Urine Glucose (UA) 500 or greater Urine Ketones Negative Urine Occult Blood Small H Urine Nitrate Negative Urine Bilirubin Negative Urine Urobilinogen 2.0 H Ur Leukocyte Esterase Negative Urine RBC Less than 1 Urine WBC 1 Hyaline Casts 5 Urine Mucus Few H Micro UA Comment Culture not ind Ur Microscopic Review Not Reportable Urine Culture Comments Culture not ind 07/28/18 07/29/18 07/29/18 22:25 02:00 03:52 WBC RBC Hgb Hct MCV MCH MCHC RDW Plt Count MPV Prelim Diff (Auto) WBC Differential Seg Neuts % (Manual) Band Neuts % (Manual) Lymphocytes % (Manual) Monocytes % (Manual) Eosinophils % (Manual) Blast Cells % (Manual) Abs Neuts (Manual) Differential Comment Platelet Estimate Platelet Morphology Sodium Potassium Chloride Carbon Dioxide Anion Gap BUN Creatinine Estimated GFR POC Glucose 174 H Random Glucose Lactic Acid 2.5 H 2.0 Calcium Magnesium Total Bilirubin AST ALT Alkaline Phosphatase Troponin I Total Protein Albumin Urine Color Urine Clarity Urine pH Ur Specific [place] Urine Protein Urine Glucose (UA) Urine Ketones Urine Occult Blood Urine Nitrate Urine Bilirubin Urine Urobilinogen Ur Leukocyte Esterase Urine RBC Urine WBC Hyaline Casts Urine Mucus Micro UA Comment Ur Microscopic Review Urine Culture Comments 07/29/18 07/29/18 06:05 06:05 WBC 5.4 RBC 3.56 L Hgb 11.7 L Hct 32.2 L MCV 90.6 MCH 33.0 MCHC 36.4 H RDW 14.7 Plt Count 118 L MPV 9.3 Prelim Diff (Auto) Manual diff required WBC Differential Manual diff final Seg Neuts % (Manual) 50 Band Neuts % (Manual) 5 Lymphocytes % (Manual) 28 Monocytes % (Manual) 12 H Eosinophils % (Manual) 5 H Blast Cells % (Manual) Abs Neuts (Manual) 3.0 Differential Comment . Platelet Estimate Low L Platelet Morphology Normal Sodium 137 Potassium 4.4 D Chloride 104 Carbon Dioxide 23.8 Anion Gap 9 BUN 15 Creatinine 0.93 Estimated GFR 80 L POC Glucose Random Glucose 167 H Lactic Acid Calcium 8.5 Magnesium Total Bilirubin AST ALT Alkaline Phosphatase Troponin I Total Protein Albumin Urine Color Urine Clarity Urine pH Ur Specific [place] Urine Protein Urine Glucose (UA) Urine Ketones Urine Occult Blood Urine Nitrate Urine Bilirubin Urine Urobilinogen Ur Leukocyte Esterase Urine RBC Urine WBC Hyaline Casts Urine Mucus Micro UA Comment Ur Microscopic Review Urine Culture Comments Microbiology 07/28/18 19:05 Nasal Wash Influenza Types A,B Antigen - Final Negative for FLU A and B antigen Infection due to influenza A or B cannot be ruled out since the antigen present in the sample may be below the detection limit of the test. - Imaging Impressions Head CT 07/28/18 16:24 CONCLUSION: 1. No acute intracranial findings. . Abdomen/Pelvis CT 07/28/18 18:19 CONCLUSION: 1. No acute inflammatory process. 2. Subcentimeter left renal low-density likely benign cysts. 3. Enlarged prostate gland. Chest X-Ray 07/28/18 21:38 CONCLUSION: No acute cardiopulmonary disease Carotid Doppler Study 07/29/18 00:00 CONCLUSION: 1. Right Internal Carotid Artery: No hemodynamically significant stenosis. 2. Left Internal Carotid Artery: No hemodynamically significant stenosis. Assessment and Plan - Plan 72-year-old male with: 1. Syncope Carotid ultrasound negative. echo pending Could be secondary to dehydration versus vasovagal event. Much improved since arriving at the hospital and received IV fluid. Obtain orthostatic vital signs. PT to evaluate 2. Elevated lactic acid/bandemia Urine negative Chest x-ray negative for acute process, personally reviewed Patient with bandemia and elevated lactic acid on presentation that quickly resolved. Discontinue antibiotics for now and monitor off of antibiotics. 3. Diabetes mellitus Holding home oral anti-hyperglycemics Sliding-scale insulin Monitor blood glucose 4. Hypertension/hyperlipidemia/coronary artery disease Continue home medications FEN Diabetic diet Electrolytes: Status post repletion with p.o. potassium, monitor BMP NS at 100 cc/hour Heparin
[2018-07-29] MEDS: Carvedilol 12.5 MG Tablet PO SCH ×2 (10:20→20:58)
[2018-07-29] MEDS: sulfaSALAzine EC 500 MG Tablet PO SCH ×4 (10:20→20:58)
[2018-07-29] MEDS: Pantoprazole Sodium 20 MG DR Tablet PO SCH (10:20)
[2018-07-29] MEDS: Ramipril 5 MG Capsule PO SCH ×2 (10:20→20:57)
[2018-07-29] MEDS: Sod Chloride 0.9% Inj 1,000 ML IV.CONT SCH ×2 (11:24→17:47)
[2018-07-29] MEDS ORDERED: Vancomycin Inj 1,500 MG in Sodium Chlor 0.9% Inj 500 ML IV.SIG SCH (14:00)
--- NOTE | 2018-07-29 14:42 | ECHRPT ---
Indication: CVA/TIA CONCLUSIONS Mildly dilated left ventricle. Mild concentric left ventricular hypertrophy. The left ventricular systolic function is mildly to moderately reduced with an estimated ejection fr action in the range of 40-45%. Trace mitral valve regurgitation. Aortic valve sclerosis is present. There is trace tricuspid valve regurgitation. BP: / HR: Rhythm: Sinus MEASUREMENTS (Male / Female) Normal Values Technical Quality:Fair 2D ECHO LV Diastolic Diameter PLAX 6.4 cm 4.2 - 5.9 / 3.9 - 5.3 cm LV Systolic Diameter PLAX 5.4 cm IVS Diastolic Thickness 1.3 cm 0.6 - 1.0 / 0.6 - 0.9 cm LVPW Diastolic Thickness 1.3 cm 0.6 - 1.0 / 0.6 - 0.9 cm LV Relative Wall Thickness 0.4 LVOT Diameter 2.3 cm Aortic Root Diameter 3.9 cm LA Systolic Diameter LX 3.6 cm 3.0 - 4.0 / 2.7 - 3.8 cm DOPPLER AV Peak Velocity 102.0 cm/s AV Peak Gradient 4.2 mmHg AV Mean Gradient 2.0 mmHg AV Velocity Time Integral 20.3 cm LVOT Peak Velocity 77.5 cm/s LVOT Peak Gradient 2.4 mmHg LVOT Velocity Time Integral 16.6 cm AV Area Cont Eq vti 3.4 cm AV Area Cont Eq pk 3.2 cm Mitral E Point Velocity 68.6 cm/s Mitral A Point Velocity 103.0 cm/s Mitral E to A Ratio 0.7 LV E' Lateral Velocity 5.3 cm/s Mitral E to LV E' Lateral Ratio 13.0 LV E' Septal Velocity 6.3 cm/s Mitral E to LV E' Septal Ratio 10.8 PV Peak Velocity 82.0 cm/s PV Peak Gradient 2.7 mmHg FINDINGS LEFT VENTRICLE Mildly dilated left ventricle. Mild concentric left ventricular hypertrophy. The left ventricular systolic function is mildly to moderately reduced with an estimated ejection fr action in the range of 40-45%. RIGHT VENTRICLE Normal right ventricular size and systolic function. LEFT ATRIUM The left atrial size is normal. RIGHT ATRIUM The right atrial size is normal. ATRIAL SEPTUM The interatrial septum not well visualized. AORTA The aortic root and proximal ascending aorta are normal in size on limited imaging. MITRAL VALVE Trace mitral valve regurgitation. AORTIC VALVE Aortic valve sclerosis is present. TRICUSPID VALVE There is trace tricuspid valve regurgitation. PULMONARY VALVE No pulmonary valve regurgitation or stenosis. VESSELS The inferior vena cava was not well visualized. PERICARDIUM No pericardial effusion. Michael Shah MD, FACC (Electronically Signed) Final Date:29 July 2018 14:41
[2018-07-29 14:52] LABS: Blast Cells 0 % (0-0); Lymphocytes 13 % (9-44)
--- NOTE | 2018-07-29 19:21 | ECG ---
Date Performed: 07/28/2018 Time Performed: 16:03:51 PTAGE: 72 years EKG: Sinus rhythm RIGHT BUNDLE BRANCH BLOCK POSSIBLE SEPTAL MYOCARDIAL INFARCTION ABNORMAL ECG INTERPRETATION BASED ON A DEFAULT AGE OF 40 YEARS PREVIOUS TRACING 07/27/18 @ 12.16.55 Since the previous tracing, no significant change n oted DOCTOR: Garfield Arteaga Interpretating Date/Time 07/29/2018 19:20:14
[2018-07-30] MEDS: Heparin - SQ 10,000 UNITS/ML Vial SQ SCH ×2 (00:24→05:12)
[2018-07-30] MEDS: Insulin NovoLOG Aspart Correctional Sugar Inj SQ SCH ×3 (03:30→13:29)
[2018-07-30] MEDS: Sod Chloride 0.9% Inj 1,000 ML IV.CONT SCH ×2 (05:11→07:06)
[2018-07-30 07:11] LABS: Hematocrit 32.1 % (39.0-51.0); Hemoglobin 11.6 gm/dL (13.0-17.0); Mean Corpuscular Hemoglobin 33.3 pg (27.0-34.0); Mean Corpuscular Volume 92.1 fL (80.0-100.0); Mean Platelet Volume 8.9 fL (7.0-11.0); Platelet Count 123 th/mm3 (150-450); Red Blood Count 3.48 mil/mm3 (4.50-5.90); Red Cell Distribution Width 14.4 % (11.6-17.2)
[2018-07-30 07:23] LABS: Mean Corpuscular HGB Conc 36.2 % (32.0-36.0)
[2018-07-30 07:35] LABS: Calcium 8.4 mg/dL (8.5-10.1); Carbon Dioxide 23.1 meq/L (21.0-32.0); Potassium 4.8 meq/L (3.5-5.1)
[2018-07-30 07:36] VITALS: RESP 16; O2SAT 97
[2018-07-30] MEDS: sulfaSALAzine EC 500 MG Tablet PO SCH (08:20)
[2018-07-30] MEDS: Pantoprazole Sodium 20 MG DR Tablet PO SCH (08:21)
[2018-07-30] MEDS: Carvedilol 12.5 MG Tablet PO SCH (08:21)
[2018-07-30] MEDS: Ramipril 5 MG Capsule PO SCH (08:22)
--- NOTE | 2018-07-30 08:45 | P.PN ---
Subjective Interval history: Follow up for syncope. Patient reports feeling back to his normal. He denies any further lightheadedness, dizziness, or syncopal episodes. He denies any chest pain, palpitations, shortness of breath. He states his barn worker is Dr. Arteaga. He denies any known history of CHF. Physical Exam Vital signs: Vital Signs 07/29/18 09:00 07/29/18 11:58 07/29/18 15:43 Temperature 97.8 F 98.0 F Pulse Rate 76 71 71 Respiratory Rate 16 16 Blood Pressure 150/70 H 122/57 L Pulse Oximetry 98 97 07/29/18 19:33 07/29/18 23:44 07/30/18 04:00 Temperature 98.5 F 98.5 F 98.8 F Pulse Rate 72 73 69 Respiratory Rate 16 16 17 Blood Pressure 120/57 L 126/55 L 136/69 Pulse Oximetry 99 97 96 07/30/18 07:33 07/30/18 07:35 Temperature 97.6 F Pulse Rate 68 70 Respiratory Rate 16 16 Blood Pressure 159/72 H 154/74 H Pulse Oximetry 96 97 Intake & Output 07/29/18 07/30/18 07/30/18 18:59 06:59 18:59 Intake Total 1000 / 1000 1000 / 1000 1000 / 1000 Balance 1000 / 1000 1000 / 1000 1000 / 1000 Intake: IV 1000 / 1000 1000 / 1000 1000 / 1000 NS Inj 1,000 ML @ 100 mls/hr IV 1000 / 1000 1000 / 1000 1000 / 1000 .CONT .[facility] Rx#:[id number] Other: # Voids 2 Date of Last Bowel Movement 07/28/18 Narrative: GENERAL: Well-nourished, well-developed pleasant male patient in [facility]. SKIN: Warm and dry. No rash. HEENT: Normocephalic. Atraumatic. Pupils equal and round. Mucous membranes pink and moist. CARDIOVASCULAR: Regular rate and rhythm. No murmur appreciated. RESPIRATORY: No accessory muscle use. Clear to auscultation. Breath sounds equal bilaterally. GASTROINTESTINAL: Abdomen soft, non-tender, nondistended. Normoactive bowel sounds x4. MUSCULOSKELETAL: No obvious deformities. Extremities without clubbing, cyanosis , or edema. NEUROLOGICAL: Awake and alert. No obvious cranial nerve deficits. Motor grossly within normal limits. Moving all extremities spontaneously. Normal speech. PSYCHIATRIC: Appropriate mood and affect; insight and judgment normal. Results - Labs CBC & Chem 7: 07/30/18 06:50 07/30/18 06:50 Laboratory Results - last 24 hr 07/28/18 07/29/18 07/29/18 16:30 06:05 10:25 WBC RBC Hgb Hct MCV MCH MCHC RDW Plt Count MPV WBC Differential Manual diff final Seg Neuts % (Manual) 50 Band Neuts % (Manual) 5 Lymphocytes % (Manual) 13 28 Monocytes % (Manual) 12 H Eosinophils % (Manual) 5 H Blast Cells % (Manual) 0 Abs Neuts (Manual) 3.0 Platelet Estimate Low L Platelet Morphology Normal Sodium Potassium Chloride Carbon Dioxide Anion Gap BUN Creatinine Estimated GFR POC Glucose 213 H Random Glucose Calcium 07/29/18 07/29/18 07/29/18 13:15 16:47 20:50 WBC RBC Hgb Hct MCV MCH MCHC RDW Plt Count MPV WBC Differential Seg Neuts % (Manual) Band Neuts % (Manual) Lymphocytes % (Manual) Monocytes % (Manual) Eosinophils % (Manual) Blast Cells % (Manual) Abs Neuts (Manual) Platelet Estimate Platelet Morphology Sodium Potassium Chloride Carbon Dioxide Anion Gap BUN Creatinine Estimated GFR POC Glucose 214 H 262 H 223 H Random Glucose Calcium 07/30/18 07/30/18 07/30/18 03:54 06:50 06:50 WBC 5.0 RBC 3.48 L Hgb 11.6 L Hct 32.1 L MCV 92.1 MCH 33.3 MCHC 36.2 H RDW 14.4 Plt Count 123 L MPV 8.9 WBC Differential Seg Neuts % (Manual) Band Neuts % (Manual) Lymphocytes % (Manual) Monocytes % (Manual) Eosinophils % (Manual) Blast Cells % (Manual) Abs Neuts (Manual) Platelet Estimate Platelet Morphology Sodium 138 Potassium 4.8 Chloride 106 Carbon Dioxide 23.1 Anion Gap 9 BUN 12 Creatinine 0.95 Estimated GFR 78 L POC Glucose 211 H Random Glucose 198 H Calcium 8.4 L 07/30/18 08:17 WBC RBC Hgb Hct MCV MCH MCHC RDW Plt Count MPV WBC Differential Seg Neuts % (Manual) Band Neuts % (Manual) Lymphocytes % (Manual) Monocytes % (Manual) Eosinophils % (Manual) Blast Cells % (Manual) Abs Neuts (Manual) Platelet Estimate Platelet Morphology Sodium Potassium Chloride Carbon Dioxide Anion Gap BUN Creatinine Estimated GFR POC Glucose 212 H Random Glucose Calcium - Imaging Impressions Head CT 07/28/18 16:24 CONCLUSION: 1. No acute intracranial findings. . Abdomen/Pelvis CT 07/28/18 18:19 CONCLUSION: 1. No acute inflammatory process. 2. Subcentimeter left renal low-density likely benign cysts. 3. Enlarged prostate gland. Chest X-Ray 07/28/18 21:38 CONCLUSION: No acute cardiopulmonary disease Carotid Doppler Study 07/29/18 00:00 CONCLUSION: 1. Right Internal Carotid Artery: No hemodynamically significant stenosis. 2. Left Internal Carotid Artery: No hemodynamically significant stenosis. Assessment and Plan - Plan 72-year-old male with: 1. Syncope Suspect secondary to dehydration versus vasovagal event. Much improved since arriving at the hospital and received IV fluid. Carotid ultrasound negative Echo with EF 4045% -discussed with the patient's barn worker Dr. Arteaga, will follow up in the office, already on CHF medications (DOLLY/BB), no signs of fluid overload Orthostatic vital signs negative PT recommending outpatient physical therapy Symptoms resolved 2. Elevated lactic acid/bandemia Urine negative Chest x-ray negative for acute process, personally reviewed Patient with bandemia and elevated lactic acid on presentation that quickly resolved. Discontinue antibiotics for now and monitor off of antibiotics. Afebrile, no signs of infection 3. Diabetes mellitus Holding home oral anti-hyperglycemics Sliding-scale insulin Monitor blood glucose 4. Hypertension/hyperlipidemia/coronary artery disease Continue home medications DVT Prophylaxis: Heparin Discharge Planning: Discharge patient to home Condition on discharge: Stable Heart Healthy/Diabetic Diet as tolerated Ad Becky activity Rx written: no new meds Follow-up with primary care physician and barn worker Dr. Arteaga
[2018-07-30 12:39] VITALS: BP 133/65; PULSE 66; TEMP 97.8
[2018-07-30] MEDS ORDERED: Pharmacy Ordered Lab Info OTHER ONE (13:45)
== END 2018-07-30 13:58 | disposition home or self-care (01) ==
LOC: NEDA 15:50 → NEPC 15:50 → NEDA 22:59 → NEPFCDU 23:04
PROVIDERS: ADMIT Family Medicine; ATTEND Family Medicine
DX: Z79.84 Long term (current) use of oral hypoglycemic drugs; M1A.9XX0 Chronic gout, unspecified, without tophus (tophi); R55 Syncope and collapse; Z82.49 Family history of ischemic heart disease and other diseases of the circulatory system; Z83.3 Family history of diabetes mellitus; D72.825 Bandemia; E11.9 Type 2 diabetes mellitus without complications; N40.0 Benign prostatic hyperplasia without lower urinary tract symptoms; I25.10 Atherosclerotic heart disease of native coronary artery without angina pectoris; I10 Essential (primary) hypertension; E78.5 Hyperlipidemia, unspecified